=== PATIENT | female | born 1945 | race Caucasian/White ===

== ENCOUNTER 2016-10-06 07:27 | Emergency (ER) | payer MEDICARE, BC ==
[2016-10-06] MEDS ORDERED: KETOROLAC TROMETHAMINE 30 MG/ML SOL IV ONE (07:33)
[2016-10-06] MEDS ORDERED: ONDANSETRON HCL 4 MG/2 ML SOL IV ONE (07:34)
[2016-10-06] MEDS ORDERED: ONDANSETRON HCL 4 MG/2 ML SOL ONE (07:36)
[2016-10-06] MEDS ORDERED: KETOROLAC TROMETHAMINE 30 MG/ML SOL ONE (07:36)
[2016-10-06 07:43] VITALS: RESP 14; TEMP 97.1; O2SAT 96
[2016-10-06 11:02] VITALS: BP 128/67; PULSE 49
== END 2016-10-06 09:25 | disposition home or self-care (01) | DRG 103 ==
LOC: ED 07:27
DX: G44.89 Other headache syndrome (principal)
CPT/HCPCS: 99283; J1885; J2405

== ENCOUNTER 2017-06-02 08:59 | Emergency (ER) | payer BC, MEDICARE ==
[2017-06-02 09:11] VITALS: RESP 18; TEMP 97.6
[2017-06-02] MEDS ORDERED: PANTOPRAZOLE SODIUM 40 MG/10 ML PDS IV ONE (09:31)
[2017-06-02] MEDS ORDERED: ONDANSETRON HCL 4 MG/2 ML SOL IV ONE (09:32)
[2017-06-02] MEDS: SODIUM CHLORIDE 0.9% 1000ML 1,000 ML IV SCH ×2 (09:34→11:47)
[2017-06-02] MEDS ORDERED: ONDANSETRON HCL 4 MG/2 ML SOL ONE (09:34)
[2017-06-02] MEDS ORDERED: PANTOPRAZOLE SODIUM 40 MG/10 ML PDS ONE (09:34)
[2017-06-02] MEDS ORDERED: MAGNESIUM HYDROXIDE 30 ML SUS PO PRN (09:43)
[2017-06-02] MEDS ORDERED: LIDOCAINE HCL 2% (VISCOUS) 20 ML SOL MT ONE (09:43)
[2017-06-02 09:45] LABS: BASOPHILS % (AUTO) 0 % (0-3); EOSINOPHILS % (AUTO) 0 % (0-9); HEMATOCRIT 37 % (35-47); MEAN CORPUSCULAR HGB CONC 35.4 gm/dl (32.0-36.0); MEAN CORPUSCULAR VOLUME 88 fL (81-99); MONOCYTES % (AUTO) 4.4 % (0-12); NEUTROPHILS % (AUTO) 86.7 % (37-80)
[2017-06-02] MEDS ORDERED: ALUMINUM/MAGNESIUM 30 ML SUS ONE (09:46)
[2017-06-02] MEDS ORDERED: LIDOCAINE HCL 2% (VISCOUS) 20 ML SOL ONE (09:46)
[2017-06-02 09:49] LABS: CALCIUM 8.5 mg/dl (8.5-10.1); POTASSIUM 3.1 mMol/L (3.5-5.1)
[2017-06-02] MEDS ORDERED: MORPHINE SULFATE 10 MG/ML SOL IV ONE (10:35)
[2017-06-02] MEDS ORDERED: MORPHINE SULFATE 10 MG/ML SOL ONE (10:36)
[2017-06-02] MEDS ORDERED: ONDANSETRON 4 MG ODT ONE (11:24)
[2017-06-02] MEDS ORDERED: PROMETHAZINE HYDROCHLORIDE 25 MG/ML SOL IV ONE (12:17)
[2017-06-02] MEDS ORDERED: PROMETHAZINE HYDROCHLORIDE 25 MG/ML SOL ONE (12:23)
[2017-06-02] MEDS ORDERED: ACETAMINOPHEN 500 MG 500 MG TAB PO PRN ×2 (13:45→14:26)
[2017-06-02] MEDS ORDERED: DEXTROSE/SALINE 0.45/KCL 20MEQ 1,000 ML/1,000 ML SOL IV SCH ×2 (13:45)
[2017-06-02] MEDS ORDERED: PIPERACILLIN/TAZOBACT 3.375 GM 3.375 GM in SODIUM CHLORIDE 0.9% 100 ML 100 ML IV SCH (14:15)
[2017-06-02] MEDS ORDERED: PIPERACILLIN/TAZOBACT 3.375 GM PDS IV ONE (14:30)
[2017-06-02 16:31] VITALS: BP 137/68; PULSE 61; O2SAT 95
[2017-06-03] MEDS ORDERED: LEVOTHYROXINE SODIUM 50 MCG TAB PO SCH ×2 (07:00)
== END 2017-06-02 16:00 | disposition short-term general hospital (02) | DRG 379 ==
LOC: ED 08:59 → UNDOADMIN 12:59 → ACUTE CARE 12:59 → ED 13:26 → ACUTE CARE 13:34 → UNDOADMIN 13:34 → ED 16:00
DX: K92.2 Gastrointestinal hemorrhage, unspecified (principal); K92.1 Melena; E87.6 Hypokalemia; R11.0 Nausea; R25.2 Cramp and spasm
CPT/HCPCS: 74019; 74177; 80048; 85025; 85610; 85730; 93005; 99285; J2270; J2405; J2543; J2550; Q9967

== ENCOUNTER 2017-07-03 18:00 | Emergency (ER) | payer MEDICARE ==
[2017-07-03 18:21] VITALS: RESP 18
[2017-07-03 18:29] LABS: BASOPHILS % (AUTO) 1 % (0-3); EOSINOPHILS % (AUTO) 5 % (0-9); HEMATOCRIT 40 % (35-47); MEAN CORPUSCULAR HGB CONC 34.6 gm/dl (32.0-36.0); MEAN CORPUSCULAR VOLUME 86 fL (81-99); MONOCYTES % (AUTO) 7.8 % (0-12); NEUTROPHILS % (AUTO) 73.6 % (37-80)
[2017-07-03 18:38] LABS: CALCIUM 9.8 mg/dl (8.5-10.1); POTASSIUM 3.4 mMol/L (3.5-5.1)
[2017-07-03] MEDS ORDERED: POTASSIUM CHLORIDE 10 MEQ TER ONE (18:42)
[2017-07-03] MEDS: ONDANSETRON HCL 4 MG/2 ML SOL IV ONE (18:50)
[2017-07-03] MEDS: SODIUM CHLORIDE 0.9% 1000ML 1,000 ML IV ONE (18:51)
[2017-07-03] MEDS ORDERED: ONDANSETRON HCL 4 MG/2 ML SOL ONE (18:55)
[2017-07-03] MEDS: POTASSIUM CHLORIDE 10 MEQ TER PO ONE (19:30)
[2017-07-03 19:50] VITALS: BP 139/83; PULSE 90; TEMP 97.2; O2SAT 99
== END 2017-07-03 19:57 | disposition home or self-care (01) | DRG 641 ==
LOC: ED 18:00
DX: E86.0 Dehydration (principal); R11.2 Nausea with vomiting, unspecified
CPT/HCPCS: 80048; 85025; 99283; J2405; A9270-GY

== ENCOUNTER 2017-07-04 20:06 | Inpatient (IN) | payer MEDICARE ==
[2017-07-04] MEDS ORDERED: SODIUM CHLORIDE 0.9% 1000ML 1,000 ML IV ONE (20:30)
[2017-07-04] MEDS ORDERED: PROMETHAZINE HYDROCHLORIDE 25 MG/ML SOL IV ONE (20:36)
[2017-07-04] MEDS ORDERED: PROMETHAZINE HYDROCHLORIDE 25 MG/ML SOL ONE (20:40)
[2017-07-04 20:42] LABS: BASOPHILS % (AUTO) 0 % (0-3); EOSINOPHILS % (AUTO) 2 % (0-9); HEMATOCRIT 46 % (35-47); HEMOGLOBIN 16.5 gm/dl (12.0-15.5); MEAN CORPUSCULAR HEMOGLOBIN 30.4 pg (27.0-32.0); MEAN CORPUSCULAR HGB CONC 35.6 gm/dl (32.0-36.0); MEAN CORPUSCULAR VOLUME 85 fL (81-99); MONOCYTES % (AUTO) 6.4 % (0-12); NEUTROPHILS % (AUTO) 82.6 % (37-80)
[2017-07-04 20:51] LABS: CARBON DIOXIDE 20.2 mEq/L (21-32); CREATININE 1.89 mg/dl (0.60-1.00); POTASSIUM 4.1 mMol/L (3.5-5.1)
[2017-07-04] MEDS ORDERED: ONDANSETRON HCL 4 MG/2 ML SOL IV PRN (21:59)
[2017-07-04] MEDS ORDERED: PROMETHAZINE HYDROCHLORIDE 25 MG/ML SOL IV PRN (22:00)
[2017-07-04] MEDS ORDERED: PANTOPRAZOLE SODIUM 40 MG VIAL 80 MG in SODIUM CHLORIDE 0.9% 100 ML 80 ML IV ONE (22:04)
[2017-07-04] MEDS ORDERED: SODIUM CHLORIDE 0.9% 100 ML 100 ML IV ONE (22:27)
[2017-07-04] MEDS ORDERED: PANTOPRAZOLE SODIUM 40 MG/10 ML PDS ONE (22:27)
[2017-07-04] MEDS: METRONIDAZOLE 250 MG TAB PO SCH (22:34)
[2017-07-04] MEDS: GABAPENTIN 300 MG CAP PO SCH (22:38)
[2017-07-05] MEDS: SODIUM CHLORIDE 0.9% 1000ML 1,000 ML IV SCH ×3 (01:30→09:25)
[2017-07-05 07:20] LABS: BASOPHILS % (AUTO) 1 % (0-3); EOSINOPHILS % (AUTO) 4 % (0-9); HEMATOCRIT 37 % (35-47); HEMOGLOBIN 13.5 gm/dl (12.0-15.5); LYMPHOCYTES % (AUTO) 14.5 % (10-50); MEAN CORPUSCULAR HEMOGLOBIN 31.3 pg (27.0-32.0); MEAN CORPUSCULAR HGB CONC 36.4 gm/dl (32.0-36.0); MEAN CORPUSCULAR VOLUME 86 fL (81-99); MONOCYTES % (AUTO) 11.1 % (0-12); NEUTROPHILS % (AUTO) 69.5 % (37-80)
[2017-07-05 07:27] LABS: CALCIUM 8.6 mg/dl (8.5-10.1); CREATININE 1.25 mg/dl (0.60-1.00); POTASSIUM 3.8 mMol/L (3.5-5.1)
[2017-07-05] MEDS: GABAPENTIN 300 MG CAP PO SCH (09:25)
[2017-07-05] MEDS: METRONIDAZOLE 250 MG TAB PO SCH (09:25)
[2017-07-05 09:43] VITALS: BP 110/58; PULSE 78; RESP 16; TEMP 98.5; O2SAT 94
== END 2017-07-05 11:00 | disposition home or self-care (01) | DRG 641 ==
LOC: ED 20:06 → ACUTE CARE 21:24
PROVIDERS: ADMIT Family Medicine; ATTEND Family Medicine
DX: E86.0 Dehydration (principal); A08.4 Viral intestinal infection, unspecified; R06.00 Dyspnea, unspecified; E87.1 Hypo-osmolality and hyponatremia; Z93.3 Colostomy status
CPT/HCPCS: 36415; 80048; 83880; 85025; 89055; 96365; 96374; 99070; 99221; 99238; 99283; J2405; J2550; A9270-GY

== ENCOUNTER 2017-08-13 18:37 | Emergency (ER) | payer BC, MEDICARE ==
[2017-08-13 19:20] VITALS: TEMP 97.2
[2017-08-13] MEDS ORDERED: PANTOPRAZOLE SODIUM 40 MG/10 ML PDS IV ONE (19:24)
[2017-08-13] MEDS ORDERED: SODIUM CHLORIDE 0.9% 1000ML 1,000 ML IV SCH (19:30)
[2017-08-13] MEDS ORDERED: PANTOPRAZOLE SODIUM 40 MG/10 ML PDS ONE (19:30)
[2017-08-13] MEDS ORDERED: SODIUM CHLORIDE 0.9% FLUSH 10 ML SOL IV PRN (19:33)
[2017-08-13 19:43] LABS: BASOPHILS % (AUTO) 1 % (0-3); EOSINOPHILS % (AUTO) 2 % (0-9); HEMATOCRIT 44 % (35-47); MEAN CORPUSCULAR HGB CONC 34.5 gm/dl (32.0-36.0); MEAN CORPUSCULAR VOLUME 89 fL (81-99); MONOCYTES % (AUTO) 6.9 % (0-12); NEUTROPHILS % (AUTO) 81.8 % (37-80)
[2017-08-13 19:52] VITALS: O2SAT 93
[2017-08-13 20:13] LABS: ALBUMIN 4.2 gm/dl (3.4-5.0); ALT 28 IU/L (14-63); GLOM FILT RATE 79 mL/min (>60); POTASSIUM 3.8 mMol/L (3.5-5.1); SODIUM 134 mMol/L (136-145)
[2017-08-13 21:57] VITALS: BP 136/80; PULSE 79; RESP 16
== END 2017-08-13 21:50 | disposition home or self-care (01) | DRG 392 ==
LOC: ED 18:37
DX: K52.9 Noninfective gastroenteritis and colitis, unspecified (principal)
CPT/HCPCS: 36415; 74019; 80053; 83735; 84484; 85025; 87804; 93005; 99285

== ENCOUNTER 2018-03-22 19:17 | Emergency (ER) | payer MEDICARE ==
[2018-03-22 19:34] VITALS: TEMP 96.7
[2018-03-22] MEDS ORDERED: ONDANSETRON HCL 4 MG/2 ML SOL IV ONE (20:05)
[2018-03-22] MEDS ORDERED: MORPHINE SULFATE 10 MG/ML SOL ONE ×3 (20:09→22:18)
[2018-03-22] MEDS ORDERED: ONDANSETRON HCL 4 MG/2 ML SOL ONE (20:09)
[2018-03-22] MEDS: MORPHINE SULFATE 10 MG/ML SOL IV PRN ×3 (20:13→22:20)
[2018-03-22 20:18] LABS: BASOPHILS % (AUTO) 1 % (0-3); EOSINOPHILS % (AUTO) 1 % (0-9); HEMATOCRIT 42 % (35-47); HEMOGLOBIN 13.8 gm/dl (12.0-15.5); LYMPHOCYTES % (AUTO) 15.4 % (10-50); MEAN CORPUSCULAR HEMOGLOBIN 30.5 pg (27.0-32.0); MEAN CORPUSCULAR HGB CONC 33.2 gm/dl (32.0-36.0); MEAN CORPUSCULAR VOLUME 92 fL (81-99); MONOCYTES % (AUTO) 5.9 % (0-12)
[2018-03-22 20:26] LABS: LACTIC ACID 2.4 mMol/L (0.0-2.0)
[2018-03-22 20:30] LABS: ALBUMIN 3.6 gm/dl (3.4-5.0); BILIRUBIN,TOTAL 0.2 mg/dl (0.2-1.0); CALCIUM 8.8 mg/dl (8.5-10.1); CREATININE 0.82 mg/dl (0.60-1.00); POTASSIUM 3.4 mMol/L (3.5-5.1); TOTAL PROTEIN 6.8 gm/dl (6.4-8.2)
[2018-03-22 20:41] LABS: INR 0.98 (0.86-1.12)
[2018-03-22] MEDS ORDERED: HYDROMORPHONE 1 MG/ML SYRINGE IV ONE (22:51)
[2018-03-22] MEDS ORDERED: HYDROMORPHONE 1 MG/ML SYRINGE ONE (22:56)
[2018-03-22 23:03] LABS: APPEARANCE,URINE Slightly Cloudy; BILIRUBIN,URINE NEGATIVE (NEGATIVE); COLOR,URINE Yellow; GLUCOSE, URINE (UA) NEGATIVE (NEGATIVE); KETONES,URINE NEGATIVE (NEGATIVE); LEUKOCYTE ESTERASE ,URINE 1+ (NEGATIVE); NITRATE,URINE NEGATIVE (NEGATIVE); OCCULT BLOOD,URINE 3+ (NEG-TRACE); UROBILINOGEN,URINE 0.2 (0.2-1.0 EU)
[2018-03-22 23:11] LABS: RBC,URINE 75-80 (0-3AV/HPF)
[2018-03-22 23:12] LABS: BACTERIA NEGATIVE (< 1+); CRYSTALS NEGATIVE (0-3 AVE/HPF)
[2018-03-23] MEDS ORDERED: HYDROMORPHONE 1 MG/ML SYRINGE IV PRN (00:37)
[2018-03-23] MEDS ORDERED: HYDROMORPHONE 1 MG/ML SYRINGE ONE (00:39)
[2018-03-23 03:09] VITALS: BP 161/101; PULSE 56; RESP 10; O2SAT 96
== END 2018-03-23 02:38 | disposition short-term general hospital (02) | DRG 392 ==
LOC: ED 19:17
DX: R10.9 Unspecified abdominal pain (principal)
CPT/HCPCS: 71046; 74177; 80053; 81001; 82150; 85025; 85610; 87088; 87205; 96374; 96375; 99284; 99285; J2270; J2405; Q9967; J1170